=== PATIENT | female | born 1985 | race Caucasian/White ===

== ENCOUNTER 2016-06-26 14:31 | Emergency (ER) | payer OTHER ==
--- NOTE | ~2016-06-26 | CR72 ---
[facility] A Service of [facility] & [facility] RADIOLOGY TEXT RESULTS PATIENT: MARI ASHLEY LOCATION: SED : 85 UNIT #: [id number] AGE: [address]: Scooby Santoro MD SEX: F ORDER DR: [id number] [address] [address] [id number] E MR#: [id number] Acc #: [id number] NAME: MARI ASHLEY : 1985 SEX: F STUDY DATE/TIME: 06/26/2016 14:52 UNIT: SED ROOM: STUDY DESCRIPTION: CR Chest Single View Portable Attending Physician: Scooby Santoro M.D. Ordering Physician: Scooby Santoro M.D. MEDICAL IMAGING REPORT This report is preliminary unless electronic signature is present. EXAM AP portable chest 06/26/2016 at 14:52 HISTORY Chest pain radiating down both arms. Symptoms began 5 days ago. COMPARISON PA and lateral chest radiograph 02/16/2013. FINDINGS Mild diminished volume inspiration. No acute airspace disease. Heart size within normal limits. No pleural effusion or pneumothorax. IMPRESSION 1. No acute chest findings. Dictated by... Autumn Matute M.D. THIS IS AN ELECTRONICALLY VERIFIED REPORT Autumn Matute M.D. at 06/28/2016 7:02 PM FELIX/bindu TD: 06/26/2016 21:40 JOB #: [id number] MEDICAL IMAGING REPORT
--- NOTE | ~2016-06-26 | EKG ---
PATIENT: MARI ASHLEY UNIT #: [id number] Ventricular Rate: 80 BPM Atrial Rate: 80 BPM P-R Interval: 126 ms QRS Duration: 74 ms Q-T Interval: 364 ms QTC Calculation(Bezet): 419 ms P [place]: 12 degrees Calculated R [place]: 24 degrees Calculated T [place]: 22 degrees Diagnosis Line: Normal sinus rhythm Diagnosis Line: Low voltage QRS Diagnosis Line: Nonspecific T wave abnormality Diagnosis Line: Otherwise normal ECG Diagnosis Line: No previous ECGs available Diagnosis Line: Confirmed by BENITO MORENO MD ([id number]) on 06/26/2016 Diagnosis Line: 4:43:51 PM INTERPRETING MD: TIFFANIE SALAS
[2016-06-26 13:56] LABS: BASOPHIL% 0.5 % (0-2.5); EOSINOPHIL# 0.1 X10e3 (0-0.7); EOSINOPHIL% 2.3 % (0.0-7.0); HEMATOCRIT 41.8 % (35.0-45.0); HEMOGLOBIN 13.8 gm/dL (12.0-16.0); LYMPHOCYTE# 1.5 X10e3 (1.0-3.5); LYMPHOCYTE% 32.3 % (17.0-45.0); MEAN CELL VOLUME 90.5 FL (83-96); MEAN CORPUSCULAR HEMOGLOBIN 29.9 PG (28-34); MEAN PLATELET VOLUME 8.5 FL (6.5-11.5); MONOCYTE# 0.4 X10e3 (0-1.0); MONOCYTE% 7.7 % (3.0-12.0); NEUTROPHIL# 2.7 X10e3 (1.5-7.1); NEUTROPHIL% 57.2 % (40-75); PLATELET COUNT 176 X10e3 (140-420); RED BLOOD COUNT 4.62 X10e (3.90-5.30); WHITE BLOOD COUNT 4.8 X10e3 (4.0-10.5)
[2016-06-26 13:58] LABS: DIFF IND NO
[2016-06-26 14:09] LABS: POC - CKMB <1.0 ng/mL (0.0-7.9); POC - MYOGLOBIN 39.9 ng/mL (0.0-169.0); POC - TROPONIN <0.05 ng/mL (<=0.05)
[2016-06-26 14:25] LABS: ALBUMIN SERUM 4.6 g/dL (3.5-5.0); ALKALINE PHOSPHATASE 57 U/L (32-92); ALT (SGPT) 15 U/L (10-40); AST (SGOT) 14 U/L (10-42); BILIRUBIN, DIRECT 0.1 mg/dL (0.0-0.2); BILIRUBIN,INDIRECT 0.3 mg/dL (0.0-0.9); BILIRUBIN,TOTAL 0.4 mg/dL (0.2-2.0); BLOOD UREA NITROGEN 9 mg/dL (9-23); BUN/CREATININE RATIO 12.85; CALCIUM SERUM 8.6 mg/dL (8.4-10.2); CARBON DIOXIDE 27 mmol/L (22-31); CHLORIDE 100 mmol/L (100-111); CREATININE SERUM 0.7 mg/dL (0.6-1.4); GLOM FILT RATE Estimated ABOVE60 mL/min (>60); GLUCOSE FASTING 86 mg/dL (70-110); MAGNESIUM 2.3 mg/dL (1.6-3.0); POTASSIUM 3.5 mmol/L (3.5-5.1); PROTEIN TOTAL SERUM 7.3 g/dL (6.0-8.3); SODIUM 132 mmol/L (135-145)
[2016-06-26 14:26] LABS: PROTHROMBIN TIME (PATIENT) 11.6 SECONDS (9.5-12.4)
[~2016-06-26 14:31] MED LIST: EYE DROPS OP; NO MEDICATIONS; ZYRTEC10 M2
[2016-06-26 14:34] LABS: PARTIAL THROMBOPLASTIN TIME 29.5 SECONDS (25.6-38.1)
[2016-06-26 15:24] LABS: POC - CKMB <1.0 ng/mL (0.0-7.9); POC - MYOGLOBIN 30.2 ng/mL (0.0-169.0)
[2016-06-26 15:25] LABS: POC - TROPONIN <0.05 ng/mL (<=0.05)
[2016-06-26] MEDS ORDERED: ATIVAN PO (16:08)
[2016-06-26] MEDS ORDERED: MOBIC (16:09)
== END 2016-06-26 16:00 | disposition home or self-care (01) ==
LOC: SED 14:31
PROVIDERS: Emergency Medicine
DX: R07.89 Other chest pain (principal); F41.9 Anxiety disorder, unspecified; M54.12 Radiculopathy, cervical region; Z88.8 Allergy status to other drugs, medicaments and biological substances
CPT/HCPCS: 36415; 71010; 80048; 80076; 82553; 83735; 83874; 84484; 84703; 85025; 85610; 85730; 93005; 99284